=== PATIENT | female | born 1940 | race African-American/Black ===

== ENCOUNTER 2025-09-25 13:29 | Inpatient (IN) | payer MEDICARE ==
[~2025-09-25] VITALS: Ht 160 cm; Wt 71.2 kg
[2025-09-25] MEDS ORDERED: APIX5TAB PO (13:42)
[2025-09-25] MEDS ORDERED: ATOR10TA PO (13:42)
[2025-09-25] MEDS: KETOROLAC TROMETHAMINE 30 MG/ML VIAL IM ONE (15:23)
[2025-09-25 17:15] LABS: PLATELET COUNT (AUTO) 289 K/uL (150-450); RED BLOOD CELL COUNT(AUTO) 3.79 MIL/uL (4.00-5.20); RED CELL DISTRIBUTION WIDTH 15.0 % (11.5-14.5); WHITE BLOOD COUNT (AUTO) 10.2 K/uL (4.5-11.0)
[2025-09-25 17:30] LABS: CALCIUM, TOTAL 9.5 mg/dL (8.8-10.5); CREATININE 1.06 mg/dL (0.60-1.30); GLOMERULAR FILTR. RATE CALC 59.0 mL/min (>60); GLUCOSE,RANDOM 80.0 mg/dL (70-110); SODIUM SERUM 140.0 mmol/L (136-145); UREA NITROGEN, BLOOD 23.0 mg/dL (7-18)
[2025-09-25 18:10] LABS: COVID AG,FIA SOURCE NASAL SWAB
[2025-09-25 18:29] LABS: SARS-COV2 (COVID) ANTIGEN,FIA Negative (Negative)
[2025-09-25] MEDS ORDERED: LOSA-424 PO (23:23)
[2025-09-25] MEDS ORDERED: MOME15CR4 TP (23:23)
[2025-09-25] MEDS ORDERED: AMLO-257 PO (23:23)
[2025-09-25] MEDS ORDERED: METO50 PO (23:23)
[2025-09-25 23:25] LABS: APPEARANCE,URINE HAZY (CLEAR); GLUCOSE, URINE (UA) NEGATIVE (NEGATIVE); LEUKOCYTE ESTERASE ,URINE LARGE (NEGATIVE); NITRATE,URINE NEGATIVE (NEGATIVE); OCCULT BLOOD,URINE TRACE (NEGATIVE); PH,URINE DRUG SCREEN 5.5 (5.0-8.0); SPECIFIC GRAVITIY, URINE 1.019 (1.003-1.030)
[2025-09-25 23:31] VITALS: O2SAT 98
[2025-09-25 23:31] LABS: ALCOHOL, URINE DRUG SCREEN NEGATIVE (NEGATIVE); AMPHET/METH SCREEN,URINE NEGATIVE (NEGATIVE); BARBITURATE SCREEN, URINE NEGATIVE (NEGATIVE); CANNABINOID SCREEN,URINE NEGATIVE (NEGATIVE); COCAINE SCREEN,URINE NEGATIVE (NEGATIVE); METHADONE SCREEN, URINE NEGATIVE (NEGATIVE)
[2025-09-25 23:35] LABS: FINE GRANULAR CASTS,URINE 0-2 /LPF (None Seen); SQUAMOUS EPITHELIAL CELL,UR Few /LPF (None Seen)
[2025-09-26 00:55] VITALS: BP 131/83; PULSE 78; RESP 18; TEMP 97.6; O2SAT 97
[2025-09-26 08:18] VITALS: BP 102/61; PULSE 81; RESP 19; TEMP 98.4; O2SAT 100
[2025-09-26] MEDS ORDERED: METOPROLOL TARTRATE 50 MG TABLET PO SCH (09:00)
[2025-09-26] MEDS ORDERED: BACITRACIN 28 GM OINTMENT TP PRN (09:00)
[2025-09-26] MEDS ORDERED: OMEPRAZOLE 20 MG CAPSULE PO PRN (09:00)
[2025-09-26] MEDS ORDERED: BENZOCAINE/MENTHOL [CEPACOL] LOZENGE PO PRN (09:00)
[2025-09-26] MEDS ORDERED: ONDANSETRON 4 MG TABLET PO PRN (09:00)
[2025-09-26] MEDS ORDERED: DOCUSATE SODIUM 100 MG CAPSULE PO PRN (09:00)
[2025-09-26] MEDS ORDERED: MAGNESIUM HYDROXIDE SUSPENSION 30 ML UDCUP PO PRN (09:00)
[2025-09-26] MEDS ORDERED: MAG HYDROX/ALUMINUM HYD/SIMETH ES 30 ML SUSPENSION UDCUP PO PRN (09:00)
[2025-09-26] MEDS ORDERED: ALBUTEROL SULFATE HFA 90 MCG/PUFF 8 GM INHALER IH PRN (09:00)
[2025-09-26] MEDS ORDERED: PETROLATUM,WHITE 28 GM JELLY TP PRN (09:00)
[2025-09-26] MEDS ORDERED: LOPERAMIDE HCL 2 MG CAPSULE PO PRN (09:00)
[2025-09-26 10:00] LABS: CHOL/HDL RATIO 2.0 (3.9-5.7); LDL CHOL (CALC.) 41.0 mg/dL (0-130)
[2025-09-26 10:21] VITALS: BP 119/67; PULSE 87; RESP 18; O2SAT 100
[2025-09-26] MEDS: APIXABAN 5 MG TABLET PO SCH (10:22)
[2025-09-26 20:09] VITALS: BP 114/65; PULSE 86; RESP 18; TEMP 97.8; O2SAT 99
[2025-09-26] MEDS: ATORVASTATIN CALCIUM 10 MG TABLET PO SCH (20:13)
[2025-09-26] MEDS: ZOLPIDEM TARTRATE 10 MG TABLET PO PRN (20:49)
[2025-09-27] MEDS: METOPROLOL TARTRATE 25 MG TABLET PO SCH (08:10)
[2025-09-27 08:20] VITALS: BP 122/78; PULSE 94; RESP 16; TEMP 97.6; O2SAT 97
[2025-09-27 20:16] VITALS: BP 115/71; PULSE 91; RESP 18; TEMP 97.8; O2SAT 99
[2025-09-27] MEDS: ACETAMINOPHEN 325 MG TABLET PO PRN (21:40)
[2025-09-28 08:15] VITALS: BP 113/74; PULSE 78; RESP 18; TEMP 97.9; O2SAT 97
[2025-09-28 16:47] VITALS: RESP 18
[2025-09-28] MEDS: IBUPROFEN 600 MG TABLET PO PRN (16:47)
[2025-09-28 17:47] VITALS: RESP 18
[2025-09-28 21:57] VITALS: BP 110/72; PULSE 88; RESP 18; TEMP 97.5; O2SAT 95
[2025-09-28 22:00] VITALS: BP 135/76; PULSE 82; RESP 18; TEMP 98.1; O2SAT 95
[2025-09-29 08:17] VITALS: BP 119/82; PULSE 78; RESP 18; TEMP 97.9; O2SAT 98
[2025-09-29 20:01] VITALS: BP 127/78; PULSE 90; RESP 18; TEMP 97.5; O2SAT 99
[2025-09-30 08:46] VITALS: BP 118/72; PULSE 67; RESP 18; TEMP 98.4; O2SAT 98
[2025-09-30 20:20] VITALS: BP 113/68; PULSE 89; RESP 17; TEMP 98.1; O2SAT 98
[2025-09-30 20:24] VITALS: BP 113/88; PULSE 113; RESP 17; TEMP 98.1; O2SAT 98
[2025-10-01 08:39] VITALS: BP 127/82; PULSE 82; RESP 18; TEMP 98.1; O2SAT 98
[2025-10-01 20:17] VITALS: BP 121/61; PULSE 92; RESP 15; TEMP 98.2; O2SAT 99
[2025-10-02 08:52] VITALS: BP 110/70; PULSE 89; RESP 17; TEMP 98.3; O2SAT 98
[2025-10-02] MEDS ORDERED: METO25 PO (17:05)
[2025-10-02] MEDS ORDERED: CEFU250T87 PO (17:12)
== END 2025-10-02 17:45 | disposition home or self-care (01) | DRG 885 ==
LOC: EMS 13:31 → B2X 22:03
PROVIDERS: ADMIT Psychiatry & Neurology Psychiatry; ATTEND Psychiatry & Neurology Psychiatry
DX: F29 Unspecified psychosis not due to a substance or known physiological condition (principal); E78.00 Pure hypercholesterolemia, unspecified; N39.0 Urinary tract infection, site not specified; F20.9 Schizophrenia, unspecified; I10 Essential (primary) hypertension; J45.909 Unspecified asthma, uncomplicated; F41.9 Anxiety disorder, unspecified; G47.00 Insomnia, unspecified; I48.91 Unspecified atrial fibrillation; K21.9 Gastro-esophageal reflux disease without esophagitis; G89.29 Other chronic pain; Z20.822 Contact with and (suspected) exposure to COVID-19
CPT/HCPCS: 80048; 80061; 80307; 81001; 83036; 85025; 87086; 96372; 99285; G0480; J1885